=== PATIENT | male | born 1980 | race Caucasian/White ===

== ENCOUNTER 2024-04-08 05:01 | Emergency (ER) | payer OTHER, SELFPAY ==
[2024-04-08 05:09] VITALS: BP 148/56; PULSE 109; RESP 18; TEMP 36.7; O2SAT 100; BMI 24.3
--- NOTE | 2024-04-08 05:23 | ED.DENTAL ---
HPI - Dental/Oral General Chief complaint: Dental/Oral Stated complaint: infection on face Time Seen by Provider: 04/08/24 05:23 Source: patient Mode of arrival: Ambulatory History of Present Illness HPI Narrative: Patient is a 43-year-old male without any significant past medical history comes into the ED from home for evaluation of swelling dental pain states it has been ongoing intermittent for the past several months nose he has a dental fracture of his wisdom teeth and is supposed to get this pulled out by his dentist however he has been having intermittent swelling pain to his right lower jaw, however at time of evaluation patient without any difficulty breathing, tolerating secretions no voice changes no trismus no stridor. Patient without any headache visual disturbances chest pain shortness breath fever chills nausea vomiting abdominal pain or any other GI/ symptoms time. Related Data Previous Rx's Medication Instructions Recorded amoxicillin 875 mg-potassium 1 tab PO BID 2 weeks #28 tabs 04/08/24 clavulanate 125 mg tablet Allergies Allergy/AdvReac Type Severity Reaction Status Date / Time No Known Drug Allergies Allergy Verified 04/08/24 05:09 Review of Systems Review of Systems Narrative: General: Denies fever, chills, weight loss HEENT:? Dental pain, facial swelling, Denies headache, eye drainage, eye irritation, head trauma, sore throat, voice change Cardiovascular:? Denies any chest pain, palpitations, shortness of breath, tachycardia Respiratory:? Denies any shortness of breath, cough, wheeze, stridor GI/:? Denies any abdominal pain, nausea, vomiting, diarrhea, bright red blood per rectum, melanotic stools, urinary frequency, urinary retention, dysuria, hematuria MSK:? Denies any joint pain, muscle pains, swelling Skin:? Denies any rashes, lesions, discoloration Neuro:? Denies any headache, lightheadedness, dizziness, fainting, weakness Psych:? Denies SI/HI Exam Narrative Exam Narrative: General:? Cooperative, comfortable, well-developed, not in acute distress HEENT:? Patient with multiple dental caries, patient with fractured teeth to the bottom right molar region no apical or periapical abscess noted, patient is speaking full sentences protecting airway no voice changes no stridor no trismus Normocephalic, atraumatic, PERRLA, normal sclera, eyelids normal, Neck:? Active full range of motion, atraumatic Chest:? Normal to inspection, negative crepitus, no overlying erythema ecchymosis Respiratory:? Normal respiratory effort, not in acute respiratory distress, clear to auscultation bilaterally negative cough, wheeze, tachypnea, rhonchi, rales Cardiology:? Regular rate rhythm negative gallop, murmur, rubs GI/:? Normal to inspection, soft, nonrigid, no tenderness to palpation, exam deferred MSK:? Full range of active range of motion of all 4 extremities, atraumatic Skin:? No rashes lesions noted Neuro:? Alert awake oriented x3, moves all 4 extremities spontaneously, cranial nerves intact, able to answer all questions appropriately follows commands appropriatelyPsych:? Cooperative, negative suicidal or homicidal ideations Initial Vital Signs Initial Vital Signs: Vital Signs Temperature 98.1 F 04/08/24 05:09 Pulse Rate 109 H 04/08/24 05:09 Respiratory Rate 18 04/08/24 05:09 Blood Pressure 148/56 H 04/08/24 05:09 Pulse Oximetry 100 04/08/24 05:09 Oxygen Delivery Method Room Air 04/08/24 05:09 Course Orders Ordered: Discontinued Medications Amoxicillin/Clavulanate Potassium (Amoxicillin/Clav 875/125 Mg) 1 tab PO NOW ONE Stop: 04/08/24 05:24 Last Admin: 04/08/24 05:27 Dose: 1 tab Vital Signs Vital signs: Vital Signs - 8 hr 04/08/24 05:09 Temperature 98.1 F Pulse Rate 109 H Respiratory Rate 18 Blood Pressure 148/56 H Pulse Oximetry 100 Oxygen Delivery Method Room Air MDM - Dental/Oral Differential Diagnosis Differential diagnosis: Likely dental caries, dental abscess, fracture of tooth and other (Cellulitis) MDM Narrative Medical decision making narrative: Patient is a 43-year-old male without any significant past medical history comes into the ED for evaluation of dental pain facial swelling states that he has known fracture of his molars states fractured his tooth proximal month ago has been having intermittent swelling pain but worse yesterday into today therefore decided come into the ED for antibiotics given the fact that he states that he called his dentist and they state that he needs to be started on antibiotics 1st. Patient at time evaluation speaking in full sentences protecting airway no voice changes no stridor no trismus on exam patient without any apical or periapical abscesses, multiple dental caries noted. Patient will be discharged home with antibiotics he was given strict return precautions he verbalized understanding of this and agrees to being discharged home with outpatient follow up Discharge Plan Departure Patient Disposition: Home Clinical Impression: Pain, dental Instructions: DI for Dental Pain Activity Restrictions/Additional Instructions: Please follow up dentist and your primary care doctor Please read the discharge instructions sheet carefully and bring all papers to all doctor follow-up visits, as it may contain information that your doctor may want to see. Disease processes change and evolve, if your symptoms worsen or if you develop any new symptoms that are concerning to you please return for evaluation. Your evaluation today does not show any evidence of any life-threatening/serious illnesses requiring admission to the hospital or surgery. Please follow-up with your doctor for re-evaluation in approximately 1 day. Seek immediate medical attention for any worrisome symptoms. *If you do not have a primary care provider please contact the [facility] Resource line at [phone]. They will ask some questions about your medical history and help get you set up with a doctor in the community. Prescriptions: New amoxicillin-pot clavulanate 875-125 mg tablet 1 tab PO BID 14 Days Qty: 28 0RF Stand Alone Forms: Patient Portal/API/Survey
[2024-04-08] MEDS: AMOXICILLIN/CLAV 875/125 MG 1 TAB PO (05:27)
== END 2024-04-08 05:37 | disposition home or self-care (01) ==
PROVIDERS: Emergency Provider Student in an Organized Health Care Education/Training Program
DX: K08.89 Other specified disorders of teeth and supporting structures (principal)
CPT/HCPCS: 99283